=== PATIENT | female | born 1980 | race Caucasian/White ===

== ENCOUNTER 2017-11-02 05:15 | Emergency (ER) | payer OTHER ==
[~2017-11-02] VITALS: Ht 172.7 cm; Wt 57.0 kg
[~2017-11-02 05:15] MED LIST: CEPH-368 PO; DIAZ5TAB PO; HYDR-3237 PO; HYDR-3245 PO
[2017-11-02] MEDS ORDERED: DEXAMETHASONE 4 MG/ML, 1ML IM ONE (06:00)
[2017-11-02] MEDS ORDERED: KETOROLAC 30 MG/1 ML ONE (06:45)
[2017-11-02] MEDS ORDERED: DEXAMETHASONE 4 MG/ML, 1ML ONE (06:45)
[2017-11-02] MEDS ORDERED: AMPICILLIN/SULBACTAM 3 GM in SODIUM CHLORIDE 0.9% 100 ML IV ONE (07:00)
[2017-11-02] MEDS ORDERED: AMPICILLIN/SULBACTAM 1,500 MG in SODIUM CHLORIDE 0.9% 50 ML IV ONE (07:00)
[2017-11-02] MEDS ORDERED: KETOROLAC 30 MG/1 ML IVPush ONE (07:00)
[2017-11-02] MEDS ORDERED: DEXAMETHASONE 4 MG/ML, 1ML IVPush ONE (07:00)
[2017-11-02 07:06] LABS: BASOPHILS # (AUTO) 0.04 x10^3/uL (0-0.1); BASOPHILS % (AUTO) 0 % (0-1); EOSINOPHILS # (AUTO) 0.05 x10^3/uL (0-0.4); EOSINOPHILS % (AUTO) 0 % (1-7); LYMPHOCYTES # (AUTO) 1.94 x10^3/uL (1-3.4); LYMPHOCYTES % (AUTO) 17 % (22-44); MD NO; MEAN CORPUSCULAR HEMOGLOBIN 20.8 pg (27.0-34.8); MEAN CORPUSCULAR HGB CONC 31.1 g/dL (32.4-35.8); MEAN CORPUSCULAR VOLUME 66.8 fL (80-100); MEAN PLATELET VOLUME 8.9 fL (7.4-10.4); MONOCYTES # (AUTO) 0.82 x10^3/uL (0.2-0.8); MONOCYTES % (AUTO) 7 % (2-9); NEUTROPHILS # (AUTO) 8.64 x10^3/uL (1.8-6.8); NEUTROPHILS % (AUTO) 75 % (42-75); PLATELET COUNT 313 x10^3/uL (130-400); RED BLOOD COUNT 3.79 x10^6/uL (3.82-5.3); RED CELL DISTRIBUTION WIDTH 18.1 % (9.6-15.2)
[2017-11-02 07:23] LABS: ANION GAP 10 mmol/L (5-15); CALCIUM 8.3 mg/dL (8.5-10.1); CHLORIDE 107 mmol/L (98-107); CREATININE 0.57 mg/dL (0.55-1.02)
[2017-11-02] MEDS ORDERED: OMNIPAQUE 350 MG/ML, 100ML BOTTLE ONE (08:01)
[2017-11-02 09:48] VITALS: BP 101/55
== END 2017-11-02 09:51 | disposition home or self-care (01) ==
LOC: ED 06:00
DX: J36 Peritonsillar abscess (principal); D50.9 Iron deficiency anemia, unspecified
CPT/HCPCS: 36415; 70491; 80048; 85025; 96365; 96375; 99285; J0295; J1100; J1885; Q9967